=== PATIENT | female | born 1950 | race Caucasian/White ===

== ENCOUNTER 2016-09-03 11:49 | Emergency (ER) | payer MEDICARE, BC ==
[~2016-09-03] VITALS: Ht 162.6 cm; Wt 105.0 kg
[2016-09-03 11:53] VITALS: BP 137/74; PULSE 92; RESP 16; TEMP 95.8; TEMP 98.5; O2SAT 95
--- NOTE | 2016-09-03 12:13 | PD ---
HPI Chief Complaint: Laceration/Skin Injury Time Seen by Provider: 12:06 Travel History International Travel<30 days: No Contact w/Intl Traveler<30days: No Traveled to known affect area: No History of Present Illness HPI 66-year-old female with history of hypertension, presents to the ER today because she states that she tripped and fell into a fence and hit her head on a sharp corner, has a laceration to her scalp. She also complains of left knee pain, things she may have fallen on her knee. She denies any loss of consciousness, denies any other injuries or issues. Modifying Factors: None Associated Signs & Symptoms: Trip and fell, scalp laceration, left knee injury Risk Factors: None PFSH Past Medical History Hx Anticoagulant Therapy: Yes (325 ASA DAILY) Cardiovascular Problems: Yes (HTN, CHOL) Cerebrovascular Accident: Yes (CVA) ?: Not Social History Tobacco Use: No Allergies-Medications (Allergen,Severity, Reaction): Coded Allergies: No Known Allergies (Unverified , 09/03/16) Reported Meds & Prescriptions Reported Meds & Active Scripts Active Reported Sertraline (Sertraline HCl) 50 Mg Tab 50 Mg PO DAILY Multi Vitamin (Multiple Vitamin) 1 Tab Tab 1 Tab PO DAILY Methocarbamol 500 Mg Tab 1,000 Mg PO BID Lisinopril-Hctz 20-12.5 Mg Tab 1 Tab PO DAILY Lortab (Hydrocodone-Acetaminophen) 5-325 Mg Tab 1 Tab PO Q6H PRN Gabapentin 100 Mg Cap 100 Mg PO TID Allergy Nasal [place] 24 Ho (Fluticasone Propionate (Nasal)) 50 Mcg/Act Spr 2 [place] NASAL DAILY Ferrous Sulfate 325 Mg Tab 325 Mg PO DAILY Biotin 5 Mg Cap 5 Mg PO DAILY Atorvastatin (Atorvastatin Calcium) 80 Mg Tab 80 Mg PO HS Aspirin 325 Mg Tab 325 Mg PO DAILY Amitriptyline (Amitriptyline HCl) 25 Mg Tab 25 Mg PO HS Acetaminophen 500 Mg Tab 1,000 Mg PO TID PRN Review of Systems Except as stated in HPI: all other systems reviewed are Neg Physical Exam Narrative GENERAL: Well-nourished, well-developed elderly white female patient in no acute distress. Awake and oriented 3. SKIN: Warm and dry. HEAD: Normocephalic. There is a 5 cm linear laceration to the left upper forehead close to the hairline. EYES: No scleral icterus. No injection or drainage. NECK: Supple, trachea midline. CARDIOVASCULAR: Regular rate and rhythm without murmurs, gallops, or rubs. RESPIRATORY: Breath sounds equal bilaterally. No accessory muscle use. GASTROINTESTINAL: Abdomen soft, non-tender, nondistended. MUSCULOSKELETAL: No cyanosis, or edema. BACK: Nontender without obvious deformity. No CVA tenderness. EXTREMITIES: No clubbing, cyanosis, or edema. No joint tenderness, effusion, or edema noted. No calf tenderness. Bilateral Homans sign negative. Abrasions notable over the left knee. Nontender range of motion. No bony tenderness or deformities. Data Data Last Documented VS Vital Signs Date Time Temp Pulse Resp B/P Pulse Ox O2 Delivery O2 Flow Rate FiO2 09/03/16 11:53 98.5 92 16 137/74 95 Orders Tetanus/Diphtheria Tox Adult (Tetanus/Di (09/03/16 12:15) Knee, Complete (4vws) (09/03/16 12:06) Lidocaine 1% Inj (50 Ml) (Xylocaine 1% I (09/03/16 12:30) MDM Medical Decision Making Medical Screen Exam Complete: Yes Emergency Medical Condition: Yes Medical Record Reviewed: Yes Differential Diagnosis Trip and fall/head injury/knee injury/laceration of the forehead Narrative Course X-ray of the left knee did not show any signs of acute fractures or acute bony injuries. Patient was given a tetanus update. Laceration was repaired by me. At this point, my plan would be to release her with follow-up to primary care physician. Return for any signs of infection, or new issues as needed. Wound care instructions given. Sutures will need to be removed within 5-7 days. The plan was discussed with her and she states understanding. Procedures Procedure Narrative LACERATION LOCATION: Scalp LENGTH: 5 cm NUMBER OF STITCHES/MAKENNA: 4/4 REPAIR: The area of the laceration was prepped with Betadine and sterilely draped. The laceration was infiltrated with 9 cc of 1% lidocaine. The wound was copiously irrigated and explored without evidence of foreign body, tendon injury or neurovascular injury. The wound was closed using 4. 0 Ethilon simple interrupted and 4 makenna behind hairline. This was a single layer repair. A sterile dressing was applied. The patient was advised to keep the dressing clean and dry. Patient tolerated the procedure well. Diagnosis Primary Impression: LACERATION WITHOUT FOREIGN BODY OF SCALP, INITIAL ENCOUNTER Additional Impression: Strain of knee and leg, left Additional Instructions: Take [id number] Tylenol and ibuprofen as needed for pain. Return for any signs of redness, drainage, swelling, or infection of the wound. Disposition: 01 DISCHARGE HOME Condition: Stable Reyes Rapp MD Sep 03, 2016 12:13
[2016-09-03] MEDS ORDERED: SERT-132 PO (12:15)
[2016-09-03] MEDS ORDERED: FLUT1SPR22 NASAL (12:15)
[2016-09-03] MEDS ORDERED: HYDR-3533 PO (12:15)
[2016-09-03] MEDS ORDERED: BIOTCAP PO (12:15)
[2016-09-03] MEDS ORDERED: ACET500T3 PO (12:15)
[2016-09-03] MEDS ORDERED: AMIT25TA9 PO (12:15)
[2016-09-03] MEDS ORDERED: ATOR1TAB18 PO (12:15)
[2016-09-03] MEDS ORDERED: METH500T3 PO (12:15)
[2016-09-03] MEDS ORDERED: ASPI325T PO (12:15)
[2016-09-03] MEDS ORDERED: LISI20TA PO (12:15)
[2016-09-03] MEDS ORDERED: MULT-135 PO (12:15)
[2016-09-03] MEDS ORDERED: FERR325T PO (12:15)
[2016-09-03] MEDS ORDERED: TETANUS/DIPHTHERIA TOXOID ADULT 0.5 ML VIAL IM ONE (12:15)
[2016-09-03] MEDS ORDERED: GABA100C4 PO (12:15)
[2016-09-03] MEDS ORDERED: LIDOCAINE HCL 1% 50 ML VIAL INFIL ONE (12:30)
--- NOTE | 2016-09-03 12:49 | RADHPO ---
EXAM DATE/TIME: 09/03/2016 12:30 [facility] COMPARISON: No previous studies available for comparison. INDICATIONS : Left knee pain after fall. MEDICAL HISTORY : None. SURGICAL HISTORY : None. ENCOUNTER: Initial ACUITY: 2 days PAIN SCORE: 10/10 LOCATION: Left posterior knee FINDINGS: There are prominent degenerative changes present with tricompartmental joint space narrowing and oste ophyte formation. There appears to be a small joint effusion. No definite fracture or destructive mathieu nge. Mineralization is normal CONCLUSION: Moderate degenerative changes. Small effusion. Vladimir Snider MD on September 03, 2016 at 12:45 Board Certified Radiologist. This report was verified electronically.
[2016-09-03 13:51] VITALS: BP 132/66; PULSE 95; RESP 17; O2SAT 96
== END 2016-09-03 14:02 | disposition home or self-care (01) ==
LOC: PHED 11:49
DX: S01.01XA Laceration without foreign body of scalp, initial encounter (principal); S86.912A Strain of unspecified muscle(s) and tendon(s) at lower leg level, left leg, initial encounter; I10 Essential (primary) hypertension; Z23 Encounter for immunization; Z79.01 Long term (current) use of anticoagulants; Z86.73 Personal history of transient ischemic attack (TIA), and cerebral infarction without residual deficits; W01.0XXA Fall on same level from slipping, tripping and stumbling without subsequent striking against object, initial encounter
CPT/HCPCS: 12002; 73564; 90471; 90714

== ENCOUNTER 2016-09-09 18:26 | Emergency (ER) | payer MEDICARE, BC ==
[~2016-09-09] VITALS: Ht 162.6 cm; Wt 104.4 kg
[~2016-09-09 18:26] MED LIST: ACET500T3 PO; AMIT25TA9 PO; ASPI325T PO; ATOR1TAB18 PO; BIOTCAP PO; FERR325T PO; FLUT1SPR22 NASAL; GABA100C4 PO; HYDR-3533 PO; LISI20TA PO; METH500T3 PO; MULT-135 PO; SERT-132 PO
[2016-09-09 18:29] VITALS: BP 145/78; PULSE 88; RESP 18; TEMP 98.2; O2SAT 99
--- NOTE | 2016-09-09 19:50 | PD ---
HPI Chief Complaint: Wound/Suture/Staple Re-Check Time Seen by Provider: 19:46 Travel History International Travel<30 days: No Contact w/Intl Traveler<30days: No Traveled to known affect area: No History of Present Illness HPI Patient is a 66-year-old female who presents emergency for stitches removal. Patient sustained a laceration approximately 6 days ago. She has no further complaints at this time. She denies any fevers, chills, wound drainage or redness. PFSH Past Medical History Hx Anticoagulant Therapy: Yes (325 ASA DAILY) Anemia: Yes Arthritis: Yes Depression: Yes Cardiovascular Problems: Yes (HTN, CHOL) High Cholesterol: Yes Cerebrovascular Accident: Yes (CVA) Diabetes: Yes Patient Takes Glucophage: No Fibromyalgia: Yes Hypertension: Yes ?: Not Past Surgical History Eye Surgery: Yes (CATERACT) Tonsillectomy: Yes Social History Alcohol Use: No Tobacco Use: No Substance Use: No Allergies-Medications (Allergen,Severity, Reaction): Coded Allergies: No Known Allergies (Unverified , 09/09/16) Reported Meds & Prescriptions Reported Meds & Active Scripts Active Reported Sertraline (Sertraline HCl) 50 Mg Tab 50 Mg PO DAILY Multi Vitamin (Multiple Vitamin) 1 Tab Tab 1 Tab PO DAILY Methocarbamol 500 Mg Tab 1,000 Mg PO BID Lisinopril-Hctz 20-12.5 Mg Tab 1 Tab PO DAILY Lortab (Hydrocodone-Acetaminophen) 5-325 Mg Tab 1 Tab PO Q6H PRN Gabapentin 100 Mg Cap 100 Mg PO TID Allergy Nasal [place] 24 Ho (Fluticasone Propionate (Nasal)) 50 Mcg/Act Spr 2 [place] NASAL DAILY Ferrous Sulfate 325 Mg Tab 325 Mg PO DAILY Biotin 5 Mg Cap 5 Mg PO DAILY Atorvastatin (Atorvastatin Calcium) 80 Mg Tab 80 Mg PO HS Aspirin 325 Mg Tab 325 Mg PO DAILY Amitriptyline (Amitriptyline HCl) 25 Mg Tab 25 Mg PO HS Acetaminophen 500 Mg Tab 1,000 Mg PO TID PRN Review of Systems Except as stated in HPI: all other systems reviewed are Neg Physical Exam Narrative GENERAL: This is a well-nourished, well-developed patient, in no apparent distress. SKIN: No rashes, ecchymoses or lesions. Cool and dry. 4 intact sutures and 4 intact makenna to the anterior scalp, no redness, foul odor or drainage, induration, fluctuance noted. Sutures are well approximated. NEUROLOGICAL: Awake and alert. Cranial nerves II through XII intact. Motor and sensory grossly within normal limits. Five out of 5 muscle strength in all muscle groups. Normal speech. Data Data Last Documented VS Vital Signs Date Time Temp Pulse Resp B/P Pulse Ox O2 Delivery O2 Flow Rate FiO2 09/09/16 18:29 98.2 88 18 145/78 99 [facility] Medical Decision Making Medical Screen Exam Complete: Yes Emergency Medical Condition: Yes Interpretation(s) Vital Signs Date Time Temp Pulse Resp B/P Pulse Ox O2 Delivery O2 Flow Rate FiO2 09/09/16 18:29 98.2 88 18 145/78 99 Differential Diagnosis Cellulitis versus wound infection versus normal wound healing versus other Narrative Course Patient is a 66 year old female who presented to emergency department to have his stitches and makenna removed from her scalp. She has no new complaints, she denies any signs or symptoms of infection. Wound is well approximated. 4 intact sutures and 4 makenna were removed without difficulty. Patient was encouraged to clean area with soap and water/shampoo as she normally would. She was encouraged to return tomorrow department for new or worsening symptoms. Patient verbalized understanding of restrictions. Patient is stable for discharge. Patient became annoyed that she had to wait to be discharged, patient was in bed 2 for approximately half an hour total. Diagnosis Primary Impression: Encounter for removal of makenna Additional Impression: Encounter for removal of sutures Referrals: Primary Care Physician Patient Instructions: General Instructions Additional Instructions: Follow-up with her primary doctor Return to emergency department for any new or worsening symptoms Med/Other Pt SpecificInfo: No Change to Meds Disposition: 01 DISCHARGE HOME Condition: Stable Markos,Valariedavid ARANDA Sep 09, 2016 19:50
== END 2016-09-09 20:01 | disposition home or self-care (01) ==
LOC: PHED 18:26 → PHEFT 20:01
DX: Z48.02 Encounter for removal of sutures (principal)
CPT/HCPCS: 99281